=== PATIENT | female | born 1965 | race Caucasian/White ===

== ENCOUNTER → 2020-11-20 | Day surgery (SDC) | payer OTHER ==
[~2020-11-20] MED LIST: ACETAMINOPHEN500 M1 PO; ALENDRONATE SOD70 MG PO; B COMPLEX1 EACH PO; EFFEXOR XR37.5 MG PO; IBUPROFEN800 M1 PO; IMITREX100 MG PO; NORCO 5-325 TA1 EACH PO; NORTRIPTYLINE H10 MG PO; PRILOSEC20 MG PO; PRINIVIL10 MG PO; TUMS200 MG PO; VITAMIN D3125 MC1 PO; ZOFRAN4 MG PO; ZYRTEC10 M3 PO; ZYRTEC10 MG PO
[2020-11-20 07:22] LABS: HCG (URINE) SCREEN NEGATIVE (NEGATIVE)
[2020-11-20 08:24] LABS: BUN/CREAT RATIO (CALC) 21.1 RATIO; CREATININE 0.71 mg/dL (0.51-0.95); POTASSIUM 4.2 mmol/L (3.5-5.1)
== END | disposition home or self-care (01) ==
LOC: FAS 07:00
PROVIDERS: Obstetrics & Gynecology
DX: N95.0 Postmenopausal bleeding (principal); I10 Essential (primary) hypertension; K21.9 Gastro-esophageal reflux disease without esophagitis; Z88.0 Allergy status to penicillin; Z88.2 Allergy status to sulfonamides
CPT/HCPCS: 36415; 80048; 84703; 93005; J2250; J2405; J2704; J3010; J7120

== ENCOUNTER → 2021-05-13 | Day surgery (SDC) | payer OTHER ==
[~2021-05-13] VITALS: Ht 160 cm; Wt 98.4 kg
[~2021-05-13] MED LIST changes: +COLACE100 M1 PO; +PERCOCET 5-3251 EACH PO; +ROSUVASTATIN CAL5 MG PO; +ZOFRAN4 M1 PO
[2021-05-13 10:28] LABS: HCG (URINE) SCREEN NEGATIVE (NEGATIVE)
[2021-05-13 11:32] LABS: HCT 36.6 % (37.0-47.0); MCH 32.1 pg (25.0-31.0); MCHC 32.8 g/dL (32.0-36.0); MCV 97.9 fL (78.0-100.0); MPV 10.6 fL (6.0-9.5); RBC 3.74 M/uL (4.20-5.40); RDW 12.9 % (11.5-14.0); WBC 5.1 K/uL (4.0-10.5)
[2021-05-13 18:13] LABS: HCT 33.4 % (37.0-47.0); HGB 11.4 g/dl (12.5-16.0); MCH 32.3 pg (25.0-31.0); MCHC 34.1 g/dL (32.0-36.0); MCV 94.6 fL (78.0-100.0); MPV 10.3 fL (6.0-9.5); RBC 3.53 M/uL (4.20-5.40); RDW 12.9 % (11.5-14.0)
[2021-05-13 18:14] LABS: WBC 15.1 K/uL (4.0-10.5)
== END | disposition home or self-care (01) ==
LOC: FAS 09:50 → EDSTATUS 11:30 → FAS 11:30 → FMS 11:30 → FAS 12:30
PROVIDERS: Obstetrics & Gynecology
DX: D25.2 Subserosal leiomyoma of uterus (principal); N83.292 Other ovarian cyst, left side; N83.291 Other ovarian cyst, right side; N83.8 Other noninflammatory disorders of ovary, fallopian tube and broad ligament; K66.0 Peritoneal adhesions (postprocedural) (postinfection); K42.9 Umbilical hernia without obstruction or gangrene; G43.109 Migraine with aura, not intractable, without status migrainosus; F32.A Depression, unspecified; I10 Essential (primary) hypertension; E78.5 Hyperlipidemia, unspecified; M81.0 Age-related osteoporosis without current pathological fracture; C50.919 Malignant neoplasm of unspecified site of unspecified female breast; K21.9 Gastro-esophageal reflux disease without esophagitis; E66.9 Obesity, unspecified; Z68.38 Body mass index [BMI] 38.0-38.9, adult; Z90.12 Acquired absence of left breast and nipple; Z87.891 Personal history of nicotine dependence; Z88.0 Allergy status to penicillin; Z88.2 Allergy status to sulfonamides; Z20.822 Contact with and (suspected) exposure to COVID-19
CPT/HCPCS: 36415; 84703; 86850; 86900; 86901; 93005; J1100; J1885; J1956; J2250; J2370; J2405; J2704; J2710; J3010; J7120